=== PATIENT | female | born 2000 | race Caucasian/White ===

== ENCOUNTER 2022-05-11 20:49 | Emergency (ER) | payer BC ==
[~2022-05-11] VITALS: Ht 165.1 cm; Wt 63.5 kg
[2022-05-11 20:56] VITALS: BP_SYST 142
--- NOTE | 2022-05-11 20:56 | NUR ---
Patient triaged and placed in ER bed 1 for evaluation. Vital signs updated, denied any acute RESPIRATORY distress at this time. Report given to Reginald PLATA for continuity of care. Instructed to notify ED staff for any changes in condition or worsening of symptoms. Patient verbalized understanding.
[2022-05-11] MEDS ORDERED: predniSONE 20 MG TABLET PO ONE (21:15)
[2022-05-11] MEDS ORDERED: FAMOTIDINE 20 MG TABLET PO ONE (21:15)
--- NOTE | 2022-05-11 21:18 | NUR ---
Dr. Bran at bedside examining the patient.
[2022-05-11] MEDS ORDERED: DIPH-1081 PO (21:58)
[2022-05-11] MEDS ORDERED: FAMO-132 PO (21:58)
[2022-05-11] MEDS ORDERED: PRED20TA PO (21:58)
[2022-05-11] MEDS ORDERED: EPIN0.3P3 IM (21:58)
--- NOTE | 2022-05-11 22:00 | NUR ---
MD AT BEDSIDE TO DISCUSS DISCHARGE PLANS.
[2022-05-11 22:19] VITALS: BP_SYST 112
--- NOTE | 2022-05-11 22:20 | NUR ---
Patient given written and verbal discharge instructions and verbalizes understanding. ER MD discussed with patient the results and treatment provided. Patient in stable condition. ID arm band removed. Rx of DIPHENHYDRAMINE, EPI-PEN, PEPCID, AND PREDNISONE given. Patient educated on pain management and to follow up with PMD. Pain Scale 0/10. Opportunity for questions provided and answered. Medication side effect fact sheet provided.
== END 2022-05-11 22:20 | disposition home or self-care (01) ==
LOC: SED 20:49
DX: T78.49XA Other allergy, initial encounter (principal); R22.0 Localized swelling, mass and lump, head; R09.81 Nasal congestion; J45.909 Unspecified asthma, uncomplicated; Z79.899 Other long term (current) drug therapy; X58.XXXA Exposure to other specified factors, initial encounter
CPT/HCPCS: 99283; J7512